=== PATIENT | male | born 1985 ===

== ENCOUNTER 2018-07-09 17:15 | Emergency (ER) | payer MEDICAID ==
[~2018-07-09] VITALS: Ht 180.3 cm; Wt 90.0 kg
[2018-07-09 17:38] VITALS: BP 119/86
[2018-07-09] MEDS ORDERED: ORPH100T2 PO (19:19)
[2018-07-09] MEDS ORDERED: HYDR-565 PO (19:19)
== END 2018-07-09 19:27 | disposition home or self-care (01) ==
LOC: ER 17:16
DX: S16.1XXA Strain of muscle, fascia and tendon at neck level, initial encounter (principal); S50.12XA Contusion of left forearm, initial encounter; M54.9 Dorsalgia, unspecified; J45.909 Unspecified asthma, uncomplicated; F17.200 Nicotine dependence, unspecified, uncomplicated; V89.2XXA Person injured in unspecified motor-vehicle accident, traffic, initial encounter; Y93.89 Activity, other specified; Y92.89 Other specified places as the place of occurrence of the external cause; Y99.8 Other external cause status
CPT/HCPCS: 99283